=== PATIENT | male | born 1945 | race Caucasian/White ===

== ENCOUNTER 2016-08-25 09:19 | Emergency (ER) | payer OTHER, MEDICARE, BC ==
[~2016-08-25 09:19] MED LIST: AMIO200 PO; ASPI81 PO; ATOR40TA49 PO; DOCU1CAP39 PO; FURO1TAB93 PO; KCL10C PO; METO25 PO; OXYC1SOL5 PO; SHOWER/TUB CHAIR LG; THERM PO; VIST25CA PO; WARF5TAB PO; WARF7.5T4 PO; Z.0.WALKERFRONT
[2016-08-25 09:21] VITALS: BP 199/88; PULSE 69; RESP 18; TEMP 97.5; O2SAT 97
[2016-08-25] MEDS ORDERED: SODIUM CHLORIDE 0.9% FLUSH 10 ML FLUSH IVF PRN (10:00)
--- NOTE | 2016-08-25 10:21 | PD ---
HPI Chief Complaint: Cardiac Complaint Time Seen by Provider: 09:59 Travel History International Travel<30 days: No Contact w/Intl Traveler<30days: No Traveled to known affect area: No History of Present Illness HPI This is a 71-year-old male with a history of coronary artery disease, status post triple bypass in January 2016, who presents today with complaints of palpitations with associated nausea. The patient states that shortly after his bypass, he started experiencing episodes of palpitations and irregular heartbeat. He was told by his inside upholsterer, Dr. Ewing that this would subside. He states that he was told if he started to experience worsening symptoms, he should come in and be evaluated. He states this morning while sitting on the couch doing paperwork, he started feeling palpitations and skipped beats. He reports associated nausea with those episodes. He denies any chest pain, chest pressure. He denies any dizziness or syncope. He states that he just feels "funny". PFSH Past Medical History Asthma: No Atrial Fibrillation: Yes Anxiety: Yes Depression: Yes Heart Rhythm Problems: Yes (hx of afib) Cancer: No Cardiac Catheterization: Yes (2 WEEKS AGO ) Cardiovascular Problems: Yes (HTN ) Chemotherapy: No Chest Pain: Yes COPD: No Diabetes: No Diminished Hearing: No Endocrine: No Genitourinary: No Hypertension: Yes Musculoskeletal: No Neurologic: No Psychiatric: Yes Reproductive: No Respiratory: Yes (hx of pneumonia) Radiation Therapy: No Sleep Apnea: No Thyroid Disease: No Past Surgical History Abdominal Surgery: Yes (PARTIAL GASTRECTOMY) Social History Alcohol Use: Yes (beer daily) Tobacco Use: No Substance Use: No Allergies-Medications (Allergen,Severity, Reaction): Coded Allergies: Bee Sting (Verified Allergy, Severe, 08/25/16) Lisinopril (Verified Allergy, Severe, Cough, 08/25/16) Chad (Verified Allergy, Severe, 08/25/16) Reported Meds & Prescriptions Reported Meds & Active Scripts Active Reported Metoprolol Tartrate 25 Mg Tab 25 Mg PO BID Lipitor (Atorvastatin Calcium) 40 Mg Tab 40 Mg PO HS Aspirin Low Dose (Aspirin) 81 Mg Chew 81 Mg CHEW DAILY Multi-Vitamin Daily (Multiple Vitamin) 1 Tab Tab 1 Tab PO DAILY Warfarin 5 Mg Tab 5 Mg PO DAILY Review of Systems Except as stated in HPI: all other systems reviewed are Neg General / Constitutional: No: Fever, Chills Eyes: No: Blurred Vision, Visual changes HENT: No: Headaches, Lightheadedness Cardiovascular: Positive: Palpitations, No: Chest Pain or Discomfort, Irregular Rhythm, Syncope Respiratory: No: Cough, Shortness of Breath Gastrointestinal: Positive: Nausea, No: Vomiting, Abdominal Pain Musculoskeletal: No: Myalgias, Weakness, Pain Neurologic: No: Weakness, Dizziness, Syncope Physical Exam Narrative GENERAL: Well-nourished, well-developed patient, in no acute respiratory distress. SKIN: Focused skin assessment warm/dry. HEAD: Normocephalic/atraumatic. EYES: No scleral icterus. No injection or drainage. NECK: Supple, trachea midline. No JVD or lymphadenopathy. CARDIOVASCULAR: Regular rate and rhythm with occasional PVC. RESPIRATORY: Breath sounds equal bilaterally. No accessory muscle use. GASTROINTESTINAL: Abdomen soft, non-tender, nondistended. MUSCULOSKELETAL: No cyanosis, or edema. NEUROLOGICAL: Awake and alert. Cranial nerves II through XII intact. Motor grossly within normal limits. Five out of 5 muscle strength in all muscle groups. Normal speech. PSYCHIATRIC: No delusional thought processes. No hallucinations. Somewhat anxious. Data Data Last Documented VS Vital Signs Date Time Temp Pulse Resp B/P Pulse Ox O2 Delivery O2 Flow Rate FiO2 08/25/16 11:39 57 20 161/67 98 Room Air 137/64 08/25/16 09:21 97.5 Orders Electrocardiogram (08/25/16 ) Electrocardiogram (08/25/16 09:59) Basic Metabolic Panel (Bmp) (08/25/16 09:59) Ckmb (Isoenzyme) Profile (08/25/16 09:59) Complete Blood Count With Diff (08/25/16 09:59) Magnesium (Mg) (08/25/16 09:59) Prothrombin Time / Inr (Pt) (08/25/16 09:59) Act Partial Throm Time (Ptt) (08/25/16 09:59) Troponin I (08/25/16 09:59) Chest, Single Ap (08/25/16 09:59) Ecg Monitoring (08/25/16 09:59) Bilateral Bp Monitoring (08/25/16 09:59) Iv Access Insert/Monitor (08/25/16 09:59) Oximetry (08/25/16 09:59) Oxygen Administration (08/25/16 09:59) Sodium Chloride 0.9% Flush (Ns Flush) (08/25/16 10:00) Sodium Chlor 0.9% 1000 Ml Inj (Ns 1000 M (08/25/16 12:00) Holter Monitor Recording (08/25/16 ) Labs Laboratory Tests Test 08/25/16 10:30 White Blood Count 9.6 TH/MM3 Red Blood Count 5.45 MIL/MM3 Hemoglobin 12.8 GM/DL Hematocrit 40.2 % Mean Corpuscular Volume 73.8 FL Mean Corpuscular Hemoglobin 23.6 PG Mean Corpuscular Hemoglobin 32.0 % Concent Red Cell Distribution Width 17.7 % Platelet Count 241 TH/MM3 Mean Platelet Volume 7.7 FL Neutrophils (%) (Auto) 65.1 % Lymphocytes (%) (Auto) 15.7 % Monocytes (%) (Auto) 12.5 % Eosinophils (%) (Auto) 6.2 % Basophils (%) (Auto) 0.5 % Neutrophils # (Auto) 6.3 TH/MM3 Lymphocytes # (Auto) 1.5 TH/MM3 Monocytes # (Auto) 1.2 TH/MM3 Eosinophils # (Auto) 0.6 TH/MM3 Basophils # (Auto) 0.0 TH/MM3 CBC Comment DIFF FINAL Differential Comment Prothrombin Time 19.9 SEC Prothromb Time International 1.8 RATIO Ratio Activated Partial 31.0 SEC Thromboplast Time Sodium Level 139 MEQ/L Potassium Level 4.3 MEQ/L Chloride Level 107 MEQ/L Carbon Dioxide Level 27.5 MEQ/L Anion Gap 5 MEQ/L Blood Urea Nitrogen 24 MG/DL Creatinine 0.85 MG/DL Estimat Glomerular Filtration 89 ML/MIN Rate Random Glucose 106 MG/DL Calcium Level 9.1 MG/DL Magnesium Level 2.2 MG/DL Total Creatine Kinase 53 U/L Troponin I LESS THAN 0.02 NG/ML MDM Medical Decision Making Medical Screen Exam Complete: Yes Emergency Medical Condition: Yes Differential Diagnosis Paroxysmal atrial fibrillation versus first degree block versus second degree block versus metabolic derangement versus electrolyte abnormality. Narrative Course 71 year-old gentleman who presents today with complaints of palpitations while sitting on a couch. He states he felt nauseous and queasy when the symptoms occurred. He denies any chest pain, chest pressure. There is no shortness of breath. Patient's EKG showed sinus bradycardia with a first-degree AV block. There were no PVCs or ectopy noted. The patient did have PVCs and occasional PAC noted on his monitor. Cardiac enzymes are within normal limits. Chest x- ray shows no evidence of acute findings. I discussed the case with Dr. Armen Ewing, patient's inside upholsterer, he agreed that a outpatient Holter monitor would be appropriate. He will see the patient in his office. The patient is instructed return of he develops any chest pain, chest pressure. Dr. Ewing wanted me to offer him a PPI however the patient does not wish to take these at this time. Diagnosis Primary Impression: Intermittent palpitations Additional Impression: History of coronary artery disease Additional Instructions: Follow up with Dr. Armen Ewing. Call today or Sunday to make an appointment for review of the results of the Holter monitor. Disposition: 01 DISCHARGE HOME Condition: Stable Dewey Florentino MD August 25, 2016 10:21
--- NOTE | 2016-08-25 10:25 | RADRPT ---
EXAM DATE/TIME: 08/25/2016 09:55 [facility] COMPARISON: CHEST SINGLE AP, January 28, 2016, 4:56. INDICATIONS : Left arm ache, nausea, irregular heartbeat. MEDICAL HISTORY : Hypertension. atrial fibrillation SURGICAL HISTORY : CABG. ENCOUNTER: Initial ACUITY: 1 day PAIN SCORE: 0/10 LOCATION: Bilateral chest FINDINGS: There is minimal cardiomegaly with mild interstitial edema. Sternal wires and bypass are noted. The re is no evident consolidation, pleural effusion pneumothorax. CONCLUSION: Previous bypass, possible mild failure. Damien Pandey MD FACR on August 25, 2016 at 10:23 Board Certified Radiologist. This report was verified electronically.
[2016-08-25 10:48] LABS: AUTOMATED NEUTROPHIL # 6.3 TH/MM3 (1.8-7.7); BASOPHIL % 0.5 % (0.0-2.0); EOSINOPHIL # 0.6 TH/MM3 (0-0.4); EOSINOPHIL % 6.2 % (0.0-4.0); HEMATOCRIT 40.2 % (39.0-51.0); HEMO FLAGS DIFF FINAL; LYMPH % 15.7 % (9.0-44.0); LYMPHOCYTE # 1.5 TH/MM3 (1.0-4.8); MEAN CELL VOLUME 73.8 FL (80.0-100.0); MEAN CORPUSCULAR HEMOGLOBIN 23.6 PG (27.0-34.0); MONO % 12.5 % (0.0-8.0); NEUT % 65.1 % (16.0-70.0); PLATELET COUNT 241 TH/MM3 (150-450); RED BLOOD COUNT 5.45 MIL/MM3 (4.50-5.90); RED CELL DISTRIBUTION WIDTH 17.7 % (11.6-17.2); WHITE BLOOD COUNT 9.6 TH/MM3 (4.0-11.0)
[2016-08-25 11:00] LABS: INTERNATIONAL NORMALIZED RATIO 1.8 RATIO; PROTHROMBIN TIME - PATIENT 19.9 SEC (9.8-11.6)
[2016-08-25 11:02] VITALS: BP 146/70; PULSE 56; RESP 20; O2SAT 97
[2016-08-25 11:06] LABS: ANION GAP 5 MEQ/L (5-15); BICARBONATE 27.5 MEQ/L (21.0-32.0); BLOOD UREA NITROGEN 24 MG/DL (7-18); CHLORIDE 107 MEQ/L (98-107); GLOMERULAR FILTRATION RATE 89 ML/MIN (>89); MAGNESIUM 2.2 MG/DL (1.5-2.5); POTASSIUM 4.3 MEQ/L (3.5-5.1); SODIUM (NA) 139 MEQ/L (136-145)
[2016-08-25 11:10] LABS: CREATINE KINASE 53 U/L (39-308)
[2016-08-25 11:39] VITALS: BP_SYST 137; BP_SYST 161; BP_DIAS 64; BP_DIAS 67; PULSE 57; RESP 20; O2SAT 98
[2016-08-25] MEDS ORDERED: SODIUM CHLOR 0.9% 1000 ML INJ 1,000 ML IV ONE (12:00)
[2016-08-25] MEDS ORDERED: METO25TA3 PO (12:18)
[2016-08-25] MEDS ORDERED: LIPI40TA PO (12:18)
[2016-08-25] MEDS ORDERED: MULT-65 PO (12:18)
[2016-08-25] MEDS ORDERED: WARF-23 PO (12:18)
[2016-08-25] MEDS ORDERED: ASPI81CH37 CHEW (12:18)
[2016-08-25 13:47] VITALS: BP 160/64
--- NOTE | 2016-08-27 17:29 | HM ---
Date Performed: 08/25/2016 Time Performed: 11:26:00 HOOKUP DATE: 08/25/16 11:26:00 AM Fri ANALYSIS START TIME: 08/25/2016 11:31:00 AM ANALYSIS END TIME: 08/26/2016 11:34:59 AM PATIENT AGE: 71 PATIENT HEIGHT PATIENT WEIGHT DRUG LIST PATIENT DIAGNOSIS TEST NARRATIVE: The patient's average heart rate was 62 BPM. Heart rates greater than 120 B PM were noted < 1% of the time. Heart rates less than 50 BPM were noted 26% of the time. No paus es exceeding 2.0 seconds were noted. 352 ventricular ectopics, which represented < 1% of the tota l beat count, were noted. The highest ventricular ectopic frequency occurred from 09:00 AM to 10:00 AM Sat. During this time 71 VE(s) occurred. Ventricular ectopics were observed as 345 isolated beat (s), as 2 couplet(s) and as 1 run(s). 453 supraventricular ectopics, which represented 1% of the total beat count, were noted. The highest supraventricular ectopic frequency occurred from 05:00 AM to 06:00 AM Sat. During this time 149 SVE(s) occurred. No episodes of ST depression (defined as -1.0 mm or more) were noted in channel 1. No episodes of ST depression (defined as -1.0 mm or more) were noted in channel 2. No episodes of ST depression (defined as -1.0 mm or more) were noted in sergio nnel 3. TEST INTERPRETATION: The patient remained in Sinus rhythm throughout the study. There were occasional PAC's and PVC's.Nothing of significant ventricular run, pauses or atrial fibrillation was appreciated. There was one diary entry for elevated heart rate up t o 100 beats per minute which corrulated to sinus rhythm. Signed by : Yamilka Mccracken
== END 2016-08-25 13:49 | disposition home or self-care (01) ==
LOC: NEPC 09:19
DX: R00.2 Palpitations (principal); R11.0 Nausea; R00.1 Bradycardia, unspecified; I44.0 Atrioventricular block, first degree; I10 Essential (primary) hypertension; Z95.1 Presence of aortocoronary bypass graft; Z86.79 Personal history of other diseases of the circulatory system; Z86.59 Personal history of other mental and behavioral disorders; Z87.09 Personal history of other diseases of the respiratory system
CPT/HCPCS: 71010; 80048; 82550; 83735; 84484; 85025; 85610; 85730; 93225; 93226; 96360; 99285; J7030